=== PATIENT | female | born 1995 | race Caucasian/White ===

== ENCOUNTER 2019-11-16 10:29 | Emergency (ER) | payer OTHER, SELFPAY ==
[2019-11-16 10:36] VITALS: BP 116/75; PULSE 98; RESP 16; TEMP 36.9; O2SAT 100
--- NOTE | 2019-11-16 10:43 | ED.FEMALEGU ---
HPI - Female Genitourinary General Chief complaint: Urogenital-Female Stated complaint: uti Time Seen by Provider: 11/16/19 10:48 Source: patient History of Present Illness HPI Narrative: Patient presents with a 3-day history of urinary urgency burning with urination and the feeling that she is not emptying her bladder. Patient denies any back pain no pelvic pain no abdominal pain. Patient denies any vaginal discharge no gross hematuria and denies any concern for STDs. MD elicited complaint: dysuria and UTI Related Data Allergies Allergy/AdvReac Type Severity Reaction Status Date / Time No Known Allergies Allergy Verified 11/16/19 10:44 Review of Systems Review of Systems: Narrative: CONSTITUTIONAL: Denies fever, chills, or sweats. EYES: Denies visual changes, redness, or discharge. ENT: Denies rhinorrhea, congestion, sore throat, or otalgia. CARDIOVASCULAR: Denies chest pain, palpitations, or edema. RESPIRATORY: Denies cough or dyspnea. GASTROINTESTINAL: Denies abdominal pain, nausea, vomiting, or diarrhea. GENITOURINARY: Denies hematuria. Patient reports dysuria and urinary frequency SKIN: Denies rash or itching. MUSCULOSKELETAL: Denies back pain, joint pain, or myalgia. NEUROLOGIC: Denies headache, numbness, or weakness. PSYCHIATRIC: Denies anxiety or depression. PMFSH Comments At time of signature, agree with nursing past medical, surgical, social and family history. There is no relevant family history pertinent to the presenting complaint Exam Narrative: Exam Narrative: GENERAL: Well-appearing, well-nourished, and in no acute distress. HEAD: Normocephalic, atraumatic. EYES: PERRLA and EOMI. ENT: Nares clear, no rhinorrhea or epistaxis. Mucous membranes moist. NECK: Supple. CHEST: Clear to auscultation. No respiratory distress. HEART: Regular rate and rhythm. No murmur heard. Normal peripheral pulses. ABDOMEN: Soft, nontender, nondistended, normal active bowel sounds. EXTREMITIES: Normal range of motion. No edema. SKIN: Warm, dry, no rash. NEURO: No focal deficits. Alert and oriented x3. [place] Coma Scale Eye Opening: Spontaneous 4 [place] Coma Scale Motor: Obeys Commands 6 [place] Coma Scale Verbal: Oriented 5 [place]rick Coma Scale Total 15 Course Vital Signs Vital signs: Vital Signs Temperature 36.9 C 11/16/19 10:36 Pulse Rate 98 11/16/19 10:36 Respiratory Rate 16 11/16/19 10:36 Blood Pressure 116/75 11/16/19 10:36 Pulse Oximetry 100 11/16/19 10:36 Temperature 36.9 C 11/16/19 10:36 Pulse Rate 98 11/16/19 10:36 Respiratory Rate 16 11/16/19 10:36 Blood Pressure 116/75 11/16/19 10:36 Pulse Oximetry 100 11/16/19 10:36 MDM - Female Genitourinary Lab Data Attestation: I reviewed the patient's lab results. Critical Care Time Critical Care Time Critical Care Time: No Discharge Plan Discharge Clinical Impression: Urinary tract infection Patient Disposition: Home, Self-Care Condition: Stable Instructions: Antibiotic Form, Urinary Tract Infection in Women (DC) Additional Instructions: Increase fluids especially cranberry juice and water Avoid caffeine and carbonated beverages Antibiotic as directed Medicine as directed--cautioned it will cause your urine to be bright orange Tylenol/ibuprofen for pain or fever Follow-up with her primary care provider if further problems or concerns Recheck if you have fever over 101, nausea and vomiting -If you have any worsening of symptoms or any other concerns please go to the ED immediately. Prescriptions: New phenazopyridine [Pyridium] 200 mg tablet 200 mg PO TID Qty: 6 RF: 0 cephalexin 500 mg tablet 500 mg PO Q12H 7 Days Qty: 14 RF: 0 Follow-up/Referrals: PHYSICIAN,TEACHER OF THE EMOTIONALLY DISTURBED [Primary Care Provider] -
== END 2019-11-16 10:50 | disposition home or self-care (01) ==
PROVIDERS: Emergency Provider Nurse Practitioner Family
DX: N39.0 Urinary tract infection, site not specified (principal)
CPT/HCPCS: 81003; 87086; 99213; G0463